=== PATIENT | male | born 1965 | race Hispanic/Latino ===

== ENCOUNTER 2017-12-11 16:45 | Observation (INO) | payer OTHER ==
[2017-12-11] MEDS ORDERED: Digoxin 0.5 MG/2 ML AMP ONE (17:19)
[2017-12-11] MEDS ORDERED: Water For Injection,Sterile 20 ML ONE (17:25)
[2017-12-11] MEDS ORDERED: Magnesium 2 GM/NS 0.9% 100 ML 2 GM in Premix Bag 1 BAG IVPB SCH (17:30)
[2017-12-11 17:31] LABS: #Basophils 0.1 thou/uL (0.0-0.2); #Lymphocytes 1.3 thou/uL (1.20-3.40); #Monocytes 0.5 thou/uL (0.11-0.59); #Neutrophils 4.5 thou/uL (1.40-6.50); %Eosinophils 0.4 % (0.0-10.0); %Lymphocytes 19.9 % (21.0-51.0); %Monocytes 7.5 % (0.0-10.0); %Neutrophils 71.3 % (42.0-75.0); Hemoglobin 15.9 g/dL (14.0-18.0); Mean Corpuscular HGB CONC 35.1 g/dL (32.0-36.0); Mean Corpuscular Hemoglobin 30.5 pg (27.0-31.0); Mean Platelet Volume 6.5 fL (7.4-10.4); Platelet Count 137 thou/uL (130-400); RBC Distribution Width 11.6 % (11.5-14.5); White Blood Cell (WBC) Count 6.3 thou/uL (4.8-10.8)
[2017-12-11 17:54] LABS: ALT (SGPT) 30 U/L (8-55); AST (SGOT) 23 U/L (5-34); Albumin 4.1 g/dL (3.5-5.0); Alkaline Phosphatase 73 U/L (40-150); Anion Gap 15 mmol/L (10-20); BUN (Urea Nitrogen) 10 mg/dL (8.4-25.7); Bilirubin, Total 0.7 mg/dL (0.2-1.2); CK (CPK) 76 U/L (30-200); Calc. Creatinine Clearance 0 mL/min (70-130); Calcium 9.1 mg/dL (7.8-10.44); Carbon Dioxide 21 mmol/L (22-29); Chloride 107 mmol/L (98-107); Estimated GFR-MDRD Greater than 90; Globulin 2.9 g/dL (2.4-3.5); Glucose 116 mg/dL (70-105); Lipase 21 U/L (8-78); Potassium 3.7 mmol/L (3.5-5.1); Sodium 139 mmol/L (136-145)
[2017-12-11 17:58] LABS: CKMB 0.6 ng/mL (0-6.6); Troponin I Less than 0.010 ng/mL (< 0.028)
--- NOTE | 2017-12-11 19:44 | RAD ---
CHEST ONE VIEW: HISTORY: Pain and tachycardia. COMPARISON: None. FINDINGS: Normal cardiac silhouette. Lungs and pleural spaces are clear. No pneumothorax or osseous abnormali ties. IMPRESSION: No acute cardiopulmonary process. POS: H
[2017-12-11 22:36] LABS: Troponin I 0.019 ng/mL (< 0.028)
[2017-12-11 23:30] VITALS: BMI 29.0
[2017-12-11] MEDS ORDERED: Ondansetron HCl/PF 4 MG/2 ML Vial IVP PRN (23:30)
[2017-12-11] MEDS ORDERED: Ondansetron ODT 4 MG TAB SL PRN (23:30)
[2017-12-12] MEDS: Sodium Chloride 0.9% 1,000 ML IV SCH ×2 (00:06→11:18)
[2017-12-12] MEDS: Digoxin 0.5 MG/2 ML AMP SLOW IVP SCH ×2 (00:06→06:12)
[2017-12-12 01:30] LABS: Troponin I Less than 0.010 ng/mL (< 0.028)
[2017-12-12] MEDS ORDERED: Calcium Carbonate 500 MG ChewTAB PO PRN (03:46)
[2017-12-12] MEDS ORDERED: Senokot 8.6 MG TAB PO PRN (03:46)
[2017-12-12] MEDS ORDERED: Acetaminophen 325 MG TAB PO PRN (03:46)
[2017-12-12] MEDS ORDERED: Mag-Al 1200 mg/1200 mg/30 ML UDCUP PO PRN (03:46)
[2017-12-12] MEDS ORDERED: Bisacodyl 5 MG TAB PO PRN (03:46)
--- NOTE | 2017-12-12 04:12 | PDOC.EVN ---
Event Note - Event Note Event Note: h&p [id number]
[2017-12-12 04:36] LABS: Troponin I Less than 0.010 ng/mL (< 0.028)
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
[2017-12-12 05:19] LABS: Hemoglobin 14.9 g/dL (14.0-18.0); Mean Corpuscular HGB CONC 35.1 g/dL (32.0-36.0); Mean Corpuscular Hemoglobin 31.1 pg (27.0-31.0); Mean Corpuscular Volume 88.7 fL (78.0-98.0); Mean Platelet Volume 6.8 fL (7.4-10.4); Platelet Count 136 thou/uL (130-400); RBC Distribution Width 11.8 % (11.5-14.5); Red Blood Cell (RBC) Count 4.78 mill/uL (4.70-6.10); White Blood Cell (WBC) Count 8.6 thou/uL (4.8-10.8)
[2017-12-12 05:22] LABS: Band 13 % (5-11); Eosinophils 1 % (0-10); Lymphocytes 20 % (21-51); MDiff Complete? YES; Monocytes 3 % (0-10); Neutrophil 63 % (42-75); PLT Morphology Comment Appears Adequate
[2017-12-12 05:24] LABS: Anion Gap 12 mmol/L (10-20); BUN (Urea Nitrogen) 8 mg/dL (8.4-25.7); Calc. Creatinine Clearance 133 mL/min (70-130); Calcium 8.8 mg/dL (7.8-10.44); Carbon Dioxide 24 mmol/L (22-29); Chloride 110 mmol/L (98-107); Cholesterol 123 mg/dl (< 200 Desired); Estimated GFR-MDRD Greater than 90; Glucose 109 mg/dL (70-105); HDL Cholesterol 31 mg/dL (>60 Neg Risk); LDL Cholesterol, Calculated 68 mg/dL; Potassium 3.8 mmol/L (3.5-5.1); Sodium 142 mmol/L (136-145); Triglycerides 122 mg/dL (Less than 150)
[2017-12-12] MEDS ORDERED: Aspirin 325 MG TAB PO SCH (09:00)
[2017-12-12] MEDS ORDERED: Metoprolol Tartrate 50 MG TAB PO SCH ×2 (09:00→19:48)
[2017-12-12] MEDS ORDERED: Non-Formulary Item 1 EACH (Omeprazole [Omeprazole] 20 MG) PO SCH (09:00)
[2017-12-12] MEDS: Aspirin 81 mg Enteric Coated Tablet PO SCH (09:32)
[2017-12-12] MEDS: Docusate 100 MG CAP PO SCH ×2 (09:33→21:48)
[2017-12-12] MEDS: Enoxaparin Sodium 30 MG/0.3 ML SYRINGE SC SCH (09:33)
[2017-12-12] MEDS ORDERED: Terazosin HCl 5 MG CAP PO SCH (21:00)
[2017-12-12] MEDS ORDERED: Pravastatin Sodium 40 MG TAB PO SCH (21:00)
[2017-12-12] MEDS ORDERED: Nortriptyline HCl 25 MG CAP PO SCH (21:00)
[2017-12-12] MEDS ORDERED: Metoprolol Tartrate 25 MG TAB PO SCH ×2 (21:00)
--- NOTE | 2017-12-13 01:18 | CON ---
DATE OF CONSULTATION: 12/12/2017 HISTORY: Jorden Khan is a 52-year-old male who is an inmate in the longterm in [place]. He has had problems with rapid heartbeat since 2012. He underwent cardiac catheterization at [facility] at some point and apparently did not have any significant coronary artery disease. He has been placed on metoprolol. He will develop left-sided sharp pain as well as tightness in the middle part of his chest. The pain is worse with deep breaths and is tender to the touch. Also, with this, he will have episodes of heart rates going up to 140-160 per minute. In looking all of his rhythm strips as well as EKGs, it appears that all of this is sinus tachycardia. The fastest heart rate that I see is 141 per minute, although he states at times this may go up to the 170s to 180s. PAST MEDICAL HISTORY: Hypertension, hypercholesterolemia, hiatal hernia, chronic gastritis, BPH, hepatitis C. MEDICATIONS: Aspirin 81 daily, metoprolol 50 q.a.m., 25 at bedtime, nortriptyline 75 at bedtime, omeprazole 20 b.i.d., pravastatin 40 at bedtime, terazosin 10 at bedtime. ALLERGIES: PENICILLIN. SOCIAL HISTORY: He currently is incarcerated in [place]. He does not smoke or drink. FAMILY HISTORY: Brother had myocardial infarction and at age 55. REVIEW OF SYSTEMS: Twelve point review of systems is otherwise unremarkable. PHYSICAL EXAMINATION: VITAL SIGNS: Blood pressure 147/89, pulse of 101, sinus rhythm on the monitor. HEENT: PERRL. NECK: Supple. CHEST: Clear. CARDIAC: S1 and S2 are normal, without any S3, S4 or murmurs. ABDOMEN: Normal bowel sounds, without tenderness, organomegaly. EXTREMITIES: Revealed no clubbing, cyanosis or edema. NEUROLOGIC: Grossly intact. SKIN: Warm and dry. MUSCULOSKELETAL: Revealed palpable lower sternal and left chest tenderness that reproduces his pain. LABORATORY DATA: EKG reveals sinus tachycardia and otherwise unremarkable. Echocardiogram revealed normal left ventricular function with ejection fraction of 50-55% with mild mitral regurgitation and mild tricuspid regurgitation. CBC is unremarkable. Sodium 142, potassium 3.8, chloride 110, carbon dioxide 24, BUN 8, creatinine 0.83. Cholesterol 123, triglycerides 122, HDL 31, LDL 68. Troponin I is normal x3. TSH is normal. Cortisol is normal. IMPRESSION: 1. Chest wall pain. 2. Sinus tachycardia. I feel that there certainly is a very large psychological overlay. Certainly may have inappropriate sinus tachycardia. 3. Hypertension. 4. Hypercholesterolemia, under good control. 5. Benign prostatic hypertrophy. 6. Hepatitis C. PLAN: Patient's metoprolol will be increased to 50 at bedtime 75 q.a.m. He will undergo Lexiscan Cardiolite testing. MTDD
[2017-12-13 05:09] LABS: #Eosinphils 0.1 thou/uL (0.0-0.7); #Lymphocytes 1.8 thou/uL (1.20-3.40); #Monocytes 0.6 thou/uL (0.11-0.59); #Neutrophils 4.7 thou/uL (1.40-6.50); %Basophils 0.6 % (0.0-1.0); %Lymphocytes 24.4 % (21.0-51.0); %Monocytes 8.3 % (0.0-10.0); %Neutrophils 64.8 % (42.0-75.0); Mean Corpuscular HGB CONC 34.9 g/dL (32.0-36.0); Mean Corpuscular Hemoglobin 30.6 pg (27.0-31.0); Mean Corpuscular Volume 87.8 fL (78.0-98.0); Mean Platelet Volume 6.3 fL (7.4-10.4); Platelet Count 141 thou/uL (130-400); RBC Distribution Width 11.7 % (11.5-14.5); Red Blood Cell (RBC) Count 5.23 mill/uL (4.70-6.10); White Blood Cell (WBC) Count 7.2 thou/uL (4.8-10.8)
[2017-12-13 05:17] LABS: Anion Gap 11 mmol/L (10-20); BUN (Urea Nitrogen) 9 mg/dL (8.4-25.7); Calc. Creatinine Clearance 126 mL/min (70-130); Calcium 9.2 mg/dL (7.8-10.44); Carbon Dioxide 25 mmol/L (22-29); Cardiac Risk 4.2 (Less than 4.5); Chloride 106 mmol/L (98-107); Cholesterol 130 mg/dl (< 200 Desired); Estimated GFR-MDRD Greater than 90; Glucose 145 mg/dL (70-105); HDL Cholesterol 31 mg/dL (>60 Neg Risk); LDL Cholesterol, Calculated 70 mg/dL; Potassium 4.2 mmol/L (3.5-5.1); Sodium 138 mmol/L (136-145); Triglycerides 144 mg/dL (Less than 150)
[2017-12-13 06:01] LABS: Amphetamine Not Detected (NotDetected); Barbiturates Screen Not Detected (NotDetected); Benzodiazepine Screen Not Detected (NotDetected); Cocaine Metabolite Screen Not Detected (NotDetected); Medtox Control Line Valid? VALID (VALID); Medtox Reader # READER 4; Methadone Not Detected (NotDetected); Methamphetamine Not Detected (NotDetected); Opiate Screen Not Detected (NotDetected); Oxycodone Screen Not Detected (NotDetected); Phencyclidine (PCP) Not Detected (NotDetected); THC/Cannabinoid Screen Not Detected (NotDetected); Tricyclic Screen Not Detected (NotDetected)
[2017-12-13] MEDS: Docusate 100 MG CAP PO SCH (08:09)
[2017-12-13] MEDS: Aspirin 81 mg Enteric Coated Tablet PO SCH (08:09)
[2017-12-13] MEDS: Enoxaparin Sodium 30 MG/0.3 ML SYRINGE SC SCH (08:10)
[2017-12-13] MEDS ORDERED: ADENOSINE 60 MG/20 ML VIAL ONE (10:43)
[2017-12-13 12:30] VITALS: BP 124/79; TEMP 98
--- NOTE | 2017-12-13 13:21 | NM ---
CARDIAC SPECT: HISTORY: A 52-year-old male with chest pain, tachycardia, hypertension, and hyperlipidemia. Family history of pulmonary artery disease. TECHNIQUE: A myocardial perfusion scan was performed using the single-isotope 1-day protocol with Technetium 99m sestamibi. Nine mCi were injected intravenously for the rest exam followed by 29 mCi for the stress study. Pharmacologic stress with adenosine was monitored and interpreted by Dr. Mackey. FINDINGS: Homogeneous tracer distribution is seen in the myocardial segments on stress and rest images without fixed or reversible defects. GATED SPECT LVEF: 81%. WALL MOTION EXAM: Normal. IMPRESSION: Normal myocardial perfusion scan. POS: MAR
--- NOTE | 2017-12-13 23:06 | DIS ---
DATE OF ADMISSION: 12/11/2017 DATE OF DISCHARGE: 12/13/2017 DISCHARGE DIAGNOSES: 1. Sinus tachycardia, resolved. 2. Chest wall pain, noncardiac, resolved. 3. Hypertension, stable. 4. Hyperlipidemia, stable. 5. History of hepatitis C. CONSULTATIONS: Dr. Mackey with Cardiology Service. PERTINENT LABORATORY AND X-RAY FINDINGS: Complete metabolic profile within normal limits. Troponin I negative x3. BNP less than 10. Total cholesterol 123, triglycerides 122, HDL 31, LDL 68. TSH 2.1 4. Serum cortisol level 18.1. CBC within normal limits. Urine drug screen dated 12/13/2017 negativ e. Portable chest x-ray dated 12/11/2017 showed no acute cardiopulmonary process. A 2D transthoraci c echocardiogram dated 12/12/2017 showed ejection fraction of 50%-55%. Mild mitral and tricuspid reg urgitation noted. Cardiolite stress test dated 12/13/2017 showed no evidence for reversible or fixed ischemia with calculated ejection fraction of 81%. HOSPITAL COURSE: Patient was observed on the telemetry unit after initially presenting with chest pa in with associated sinus tachycardia. The patient was initially evaluated, receiving aspirin, Zofran , and sublingual nitroglycerin. The patient treated with beta blockade therapy with overall resoluti on of the sinus tachycardia. The patient underwent ischemic rule out including Cardiolite stress fariba ting showing no evidence of reversible or fixed ischemia and preserved ejection fraction of 81%. Car diology recommended increasing metoprolol to 75 mg daily and 50 mg at bedtime and to monitor for recu rrence. The patient overall remained clinically stable throughout the hospital course, tolerating re gular oral intake with stable vital signs. I have examined the patient at the time of discharge and discussed followup instructions. The patient verbalized understanding and agreement and will dischar ge on 12/13/2017. DISCHARGE MEDICATIONS: 1. Enteric-coated aspirin 81 mg p.o. daily. 2. Nortriptyline 75 mg p.o. at bedtime. 3. Omeprazole 20 mg p.o. b.i.d. 4. Pravachol 40 mg p.o. at bedtime. 5. Terazosin 10 mg p.o. at bedtime. 6. Metoprolol 75 mg p.o. daily and 50 mg p.o. at bedtime. FOLLOWUP: Patient will follow up at the [facility]. CONDITION ON DISCHARGE: Stable. ACTIVITY: Ad matias. DIET: Heart healthy. CODE STATUS: FULL. DISPOSITION: Discharge to [facility] on 12/13/2017.
--- NOTE | 2017-12-17 09:12 | STRESS ---
Acquisition Time: 2017-12-13 09:56:27 Total Exercise Time: 00:04:00 Test Indications: CHEST PAIN Medications: Protocol: ADENOSINE Max HR: 105 BPM 62% of Pred: 169 BPM Max BP: 130/080 mmHG Max Work Load: 1.0 METS RESTING EKG: NORMAL SINUS RHYTHM AT 87 BPM SYMPTOMS: CHEST PAIN APPROPRIATE BP RESPONSE FOR ADENOSINE ECTOPY: NONE EKG STRESS: NO SIGNIFICANT CHANGES INTERPRETATION: AWAIT NUCLEAR IMAGES FOR DEFINITIVE DIAGNOSIS Confirmed by HANDY MENA ([id number]), editor magazine JULIANA GUERRERO ([id number]) on 12/17/2017 9:12:18 AM Referred By: Confirmed By:HANDY MENA
== END 2017-12-13 14:28 ==
LOC: ERS 16:45 → 2SW 22:59
PROVIDERS: ADMIT Internal Medicine; ATTEND Internal Medicine
DX: R07.89 Other chest pain (principal); R00.0 Tachycardia, unspecified; I10 Essential (primary) hypertension; E78.5 Hyperlipidemia, unspecified; K29.50 Unspecified chronic gastritis without bleeding; N40.0 Benign prostatic hyperplasia without lower urinary tract symptoms; E78.00 Pure hypercholesterolemia, unspecified; G89.29 Other chronic pain; M54.5 Low back pain; Z86.19 Personal history of other infectious and parasitic diseases; Z79.899 Other long term (current) drug therapy; Z88.0 Allergy status to penicillin
CPT/HCPCS: 36415; 71045; 78452; 80048; 80053; 80061; 80306; 82533; 82553; 83690; 83880; 84443; 84484; 85025; 85379; 93005; 93017; 93306; 96361; 96365; 96372; 96375; 96376; A4216; A9500; G0378; J0153; J1160; J1650; J3475

== ENCOUNTER 2019-01-30 04:02 | Emergency (ER) | payer OTHER ==
[2019-01-30 05:04] LABS: #Lymphocytes 1.3 thou/uL (1.20-3.40); #Monocytes 0.6 thou/uL (0.11-0.59); #Neutrophils 6.2 thou/uL (1.40-6.50); %Basophils 0.4 % (0.0-1.0); %Eosinophils 0.3 % (0.0-10.0); %Lymphocytes 15.6 % (21.0-51.0); %Monocytes 7.2 % (0.0-10.0); %Neutrophils 76.5 % (42.0-75.0); Hemoglobin 15.4 g/dL (14.0-18.0); Mean Corpuscular HGB CONC 34.9 g/dL (32.0-36.0); Mean Corpuscular Hemoglobin 30.3 pg (27.0-31.0); Mean Corpuscular Volume 86.6 fL (78.0-98.0); Platelet Count 144 thou/uL (130-400); RBC Distribution Width 11.1 % (11.5-14.5); Red Blood Cell (RBC) Count 5.09 mill/uL (4.70-6.10)
[2019-01-30 05:27] LABS: ALT (SGPT) 16 U/L (8-55); AST (SGOT) 17 U/L (5-34); Albumin 3.9 g/dL (3.5-5.0); Alkaline Phosphatase 61 U/L (40-110); Anion Gap 15 mmol/L (10-20); BUN (Urea Nitrogen) 15 mg/dL (8.4-25.7); Bilirubin, Total 1.6 mg/dL (0.2-1.2); Calc. Creatinine Clearance 0 mL/min (70-130); Calcium 8.9 mg/dL (7.8-10.44); Carbon Dioxide 18 mmol/L (22-29); Chloride 111 mmol/L (98-107); Estimated GFR-MDRD 78; Globulin 2.6 g/dL (2.4-3.5); Glucose 114 mg/dL (70-105); Potassium 3.9 mmol/L (3.5-5.1); Protein, Total 6.5 g/dL (6.0-8.3); Sodium 140 mmol/L (136-145)
--- NOTE | 2019-01-30 08:12 | RAD ---
Chest one view HISTORY: Chest pain. COMPARISON: 12/11/2017. FINDINGS: Cardiac silhouette is magnified by projection. Pulmonary vasculature is unremarkable. Media stinum is midline. Calcified granulomata are consistent with healed granulomatous disease. Electronic monitoring device now overlies the left chest. No lobar consolidation or evidence of pneum othorax. vehicle monitor technician leads overlie the chest. IMPRESSION: No active cardiopulmonary abnormalities are demonstrated.
[2019-01-30 08:27] LABS: Troponin I Less than 0.010 ng/mL (< 0.028)
== END 2019-01-30 10:22 ==
LOC: ERS 04:02
DX: R07.9 Chest pain, unspecified (principal); I10 Essential (primary) hypertension; E78.00 Pure hypercholesterolemia, unspecified; Z79.899 Other long term (current) drug therapy
CPT/HCPCS: 36415; 71045; 80053; 84484; 85025; 93005